=== PATIENT | male | born 1975 | race Caucasian/White ===

== ENCOUNTER 2016-11-30 13:46 | Emergency (ER) | payer BC, OTHER ==
[2016-11-30] MEDS ORDERED: Lidocaine 1% 50 ML MDV INJECT ONE (14:03)
[2016-11-30] MEDS ORDERED: Acetaminophen/HYDROcodone 325-5 MG Tab PO ONE (14:03)
[2016-11-30] MEDS ORDERED: Bupivacaine 0.5% 50 ML MDV INJECT ONE (14:13)
[2016-11-30] MEDS ORDERED: Bupivacaine 0.5% 10 ML SDV ONE (14:18)
[2016-11-30] MEDS ORDERED: Diphtheria,Pertussis(Acell),Tetanus Vaccine 0.5 ML SDV inactive IM ONE (14:26)
[2016-11-30] MEDS ORDERED: ceFAZolin 1 GM in Premix Bag 1 BAG IV ONE (14:33)
[2016-11-30] MEDS ORDERED: Diphtheria/Tetanus Toxoids,Adult (Td) 0.5 ML Syringe IM ONE (15:08)
--- NOTE | 2016-11-30 15:08 | CR ---
Left hand: Four views of the left hand were obtained. Fractures are identified within the proximal shaft of the proximal phalanx of fourth and fifth digit. Mild angulation seen of the fourth finger. Slightly comminuted fracture also noted within the mid shaft of the middle phalanx of the second finger. Tuft fractures are seen within the distal second and third fingers as well as minimal tuft fracture within the fourth finger. Diffuse soft tissue swelling is seen. No additional abnormality is noted. Impression: 1. Multiple fractures as noted above. Soft tissue swelling. Diagnostic code #3
[2016-11-30] MEDS ORDERED: Sulfamethoxazole/Trimethoprim 800-160 MG Tab PO ONE (15:10)
--- NOTE | 2016-11-30 15:31 | EDM.PDOC ---
ED HPI Skin/Rash - General Chief Complaint: Laceration Stated Complaint: LEFT HAND INJURY Time Seen by Provider: 11/30/16 14:04 Source: Reports: Patient History Limitations: Reports: No limitations - History of Present Illness INITIAL COMMENTS - FREE TEXT/NARRATIVE: Patient is a 40 year old male who presents to the E.D. complaining of pain, abrasions, laceration to left hand/fingers. Patient states he is left handed and was working on a Libratoer motor belt. States while his left hand was working on the motor another co worker accidentally turned it on causing his hand to get pulled through the eduardo. Has pain to the 2nd-5 finger. Laceration to the middle phalanx index finger and angulation to the proximal ring finger. No sensory deficits noted. Tetanus status is not up to date. Patient denies any additional complaints. Timing: Reports: rapid onset Location, Skin: Reports: upper extremity, left Quality: Reports: Ache, Throbbing Severity: moderate Known Identified Source: yes Place of Occurrence: work Similar Symptoms Previously: no Recent Medical Care: no Treatments APPLICATIONS INTERN: Reports: Other (see below) (none stated) - Related Data Allergies Allergy/AdvReac Type Severity Reaction Status Date / Time No Known Allergies Allergy Verified 11/30/16 13:55 Home Meds: Ambulatory Orders Medication Instructions Recorded Confirmed Acetaminophen/HYDROcodone [[place] 1 tab PO Q6H PRN #20 tablet 11/30/16 325-5 MG] Sulfamethoxazole/Trimethoprim 1 each PO BID #20 tablet 11/30/16 [Bactrim Ds Tablet] Tadalafil [Cialis] 1 tab PO DAILY 11/30/16 11/30/16 Past Medical History - Past Surgical History HEENT Surgical History: Reports: Other (see below) Other HEENT Surgeries/Procedures: cyst removal Social & Family History - Tobacco Use Smoking Status *Q: Current Every Day Smoker Years of Tobacco use: 20 Packs/Tins Daily: 0.8 - Caffeine Use Caffeine Use: Reports: None - Recreational Drug Use Recreational Drug Use: No ED ROS GENERAL - Review of Systems Review Of Systems: See Below ED EXAM, SKIN/RASH Exam: See Below Exam Limited By: No limitations General Appearance: alert, WD/WN, mild distress Ears: hearing grossly normal Nose: normal inspection Throat/Mouth: Normal voice, No airway compromise Neck: normal inspection Respiratory/Chest: no respiratory distress, no accessory muscle use Cardiovascular: normal peripheral pulses, regular rate, rhythm Peripheral Pulses: 2+: radial (L) Extremities: other (See Below) Neurological: alert, oriented, CN II-XII intact, normal cognition, no motor/ sensory deficits Psychiatric: normal affect, normal mood Skin: Warm, Dry, Normal color Comments: Laceration to the middle phalanx, index finger, measuring 2.5 cm. Partial involvement noted to the middle phalanxe extensor tendon. Able to extend PIP/ DIP against resistance. X-ray of the left hand revealed: Index finger comminuted fracture to the middle phalanx minimally displaced, and also tuft fracture. Middle finger: Tuft fracture Ring finger: Angulated transverse fracture to the proximal phalanx Pinky finger: Comminuted fracture to the proximal phalanx minimally displaced. ED SKIN PROCEDURES - Laceration/Wound Repair Left Distal Finger Lac/wound length in cm: 2.5 Appearance: subcutaneous Distal NVT: neuro & vascular intact, other (Index finger: Partial tear of extensor tendon at the PIP. Able to extend PIP/DIP against resistance. ) Anesthetic type: digital Local anesthesia - Lidocaine (Xylocaine): other (0.5 marcaine) Local anesthetic volume: 5cc Exploration/Debridement/Repair: wound explored, in a bloodless field, explored to base, no foreign material found Closed with: sutures Suture size: 4-0 # of sutures: 8 Suture type: prolene, interrupted Sterile dressing applied: nurse Tetanus status addressed: Yes Complications: No - Splinting Left Upper Extremity Splint site: hand Pre-procedure NV status: normal Post-procedure NV status: normal Splint material: fiberglass, other Splint design: volar Applied & form fitted by: provider Provider post-splint application NV check: NV status normal, good position Complications: No Course - Vital Signs Last Recorded V/S: Last Vital Signs Temp 97 F 11/30/16 13:50 Pulse 77 11/30/16 13:50 Resp 16 11/30/16 13:50 BP 151/95 H 11/30/16 13:50 Pulse Ox 100 11/30/16 13:50 - Orders/Labs/Meds Orders: Active Orders 24 hr Category Date Time Status Vaccines to be Administered [RC] PER UNIT ROUTINE Care 11/30/16 14:26 Active Meds: Medications Discontinued Medications Generic Name Dose Route Start Last Admin Trade Name Valente PRN Reason Stop Dose Admin Hydrocodone Bitart/Acetaminophen 1 tab 11/30/16 14:03 11/30/16 14:24 [place] 325-5 Mg PO 11/30/16 14:04 1 tab ONETIME ONE Administration Bupivacaine HCl 50 ml 11/30/16 14:13 11/30/16 14:23 Marcaine 0.5% INJECT 11/30/16 14:14 Not Given ONETIME ONE Bupivacaine HCl Confirm 11/30/16 14:18 11/30/16 14:25 Sensorcaine-Mpf 0.5% Administered 11/30/16 14:19 10 ml Dose Administration 10 ml .ROUTE .STK-MED ONE Diphtheria/Tetanus/Acell Pertussis 0.5 ml 11/30/16 14:26 11/30/16 15:09 Boostrix IM 11/30/16 14:27 Not Given .ONCE ONE Cefazolin Sodium/Dextrose 1 gm 50 mls @ 100 mls/hr 11/30/16 14:33 11/30/16 15 :42 / Premix IV 11/30/16 15:02 Not Given ONETIME ONE Lidocaine HCl 50 ml 11/30/16 14:03 Xylocaine 1% INJECT 11/30/16 14:04 ONETIME ONE Tetanus/Diphtheria Toxoids 0.5 ml 11/30/16 15:08 11/30/16 15:08 Tenivac IM 11/30/16 15:09 0.5 ml .ONCE ONE Administration Trimethoprim/Sulfamethoxazole 2 tab 11/30/16 15:10 Septra Ds PO 11/30/16 15:11 ONETIME ONE - Re-Assessments/Exams Free Text/Narrative Re-Assessment/Exam: Ordered lidocaine 1%, boostrix, and left hand x-ray. Changes lidocaine 1% to Marcaine. [place] 5-325mg Ordered. Digitally blocked index finger and ring finger with relief of pain distally. Laceration measuring 2.5 cm to the dorsal aspect middle phalanx index finger. Open fracture. Ordered IV and ancef 1 gram. Patient states he cannot take doxyclyne since he has adverse reaction. Becomes confused. X-ray of the left hand revealed: Index finger comminuted fracture to the middle phalanx minimally displaced, and also tuft fracture. Middle finger: Tuft fracture Ring finger: Angulated transverse fracture to the proximal phalanx Pinky finger: Comminuted fracture to the proximal phalanx minimally displaced. Laceration and abrasions cleaned by nursing staff. When discussing antibiotic treatment. Patients significant other states he cannot have keflex but can take doxycycline. [address] Rodriguez credit collections analyst orthopedic surgeon. Will see the patient this coming Monday in the clinic with plans of having surgery the following Monday. Laceration closed with no complications. Appears extensor tendon of the middle phalanx was partially involved. Able to extend finger at the PIP/DIP against resistance. Changed antibiotic to bactrim DS. Volar splint applied with no issues. Index finger laceration exposed to allow inspection for infection and dressing change. Discharge patient home with instructions as documented with prescription for norco and bactrim ds. Departure - Departure Time of Disposition: 15:39 Disposition: Home, Self-Care 01 Condition: fair Clinical Impression: Fracture of multiple fingers Open fracture of finger of left hand Qualifiers: Encounter type: initial encounter Qualified Code(s): S62.609B - Fracture of unspecified phalanx of unspecified finger, initial encounter for open fracture Fracture of finger, middle phalanx, left, open Qualifiers: Encounter type: initial encounter Qualified Code(s): S62.629B - Displaced fracture of medial phalanx of unspecified finger, initial encounter for open fracture Prescriptions: Acetaminophen/HYDROcodone [[place] 325-5 MG] 1 tab PO Q6H PRN #20 tablet PRN Reason: Pain (Severe 7-10) Sulfamethoxazole/Trimethoprim [Bactrim Ds Tablet] 1 each PO BID #20 tablet Instructions: Pain Medicine Instructions, [id number], Stitches, Ferguson, or Adhesive Wound Closure, [id number], Laceration Care, Adult, [id number] Referrals: PCP,None [Primary Care Provider] - Tyshawn Rodriguez MD [Physician] - Forms: ED Department Discharge, Return to Work/School Form Additional Instructions: Take the Bactrim as prescribed. Utilize ice 4-6 times daily, 20 minutes in duration, do not place ice directly on the skin. For mild to moderate pain take Tylenol 650 mg every 6 hours and ibuprofen 600 mg every 6 hours in alternating fashion. Elevate extremity when able to reduce swelling and pain. For severe pain take [place] one tab every [address] Do not drive today nor while taking the [place]. Laceration to left index finger, cleanse twice daily, PAT dry, reapply bacitracin and dressing. Keep area clean and dry. Followup with Dr. Rodriguez Orthopedic Surgeon at [facility] this coming Monday for evaluation for surgery. Call today for appointment. Return back to the ED if you experience any new or worsening symptoms. Sutures need to be removed in 10 days. Followup with provider at [facility] to do so. - My Orders Last 24 Hours: My Active Orders 11/30/16 14:26 Vaccines to be Administered [RC] PER UNIT ROUTINE - Assessment/Plan Last 24 Hours: My Active Orders 11/30/16 14:26 Vaccines to be Administered [RC] PER UNIT ROUTINE
[2016-11-30 16:54] VITALS: BP 144/79
== END 2016-11-30 15:55 | disposition home or self-care (01) ==
LOC: JD.ED 13:46
DX: S62.617B Displaced fracture of proximal phalanx of left little finger, initial encounter for open fracture (principal); S62.615B Displaced fracture of proximal phalanx of left ring finger, initial encounter for open fracture; S62.621B Displaced fracture of middle phalanx of left index finger, initial encounter for open fracture; S62.633B Displaced fracture of distal phalanx of left middle finger, initial encounter for open fracture; W30.89XA Contact with other specified agricultural machinery, initial encounter; Z88.6 Allergy status to analgesic agent; Z88.2 Allergy status to sulfonamides; F17.200 Nicotine dependence, unspecified, uncomplicated; Z23 Encounter for immunization
CPT/HCPCS: 12001; 29125; 64450; 73130; 90471; 90714; 99284; A9270; 99283-25

== ENCOUNTER 2016-12-05 07:09 | Day surgery (SDC) | payer OTHER ==
[~2016-12-05 07:09] MED LIST: Lidocaine 1%/Sod Bicarbonate in NS 8.4% 1 ML Syringe PRN; Sodium Chloride 0.9% 10 ML Syringe FLUSH PRN
[2016-12-05] MEDS ORDERED: fentaNYL 100 MCG/2 ML SDV ONE ×2 (07:21→09:03)
[2016-12-05] MEDS ORDERED: Propofol 200 MG/20 ML SDV ONE ×2 (07:21→07:23)
[2016-12-05] MEDS ORDERED: Midazolam 1 MG/ML 2 ML SDV ONE (07:22)
[2016-12-05] MEDS ORDERED: Ondansetron 4 MG/2 ML SDV ONE (07:23)
[2016-12-05] MEDS ORDERED: Dexamethasone 4 MG/ML 5 ML MDV ONE (07:23)
[2016-12-05] MEDS ORDERED: Lidocaine 1% 4 ML ONE (07:23)
[2016-12-05] MEDS ORDERED: Lidocaine 0.5% 50 ML SDV ONE (07:25)
[2016-12-05] MEDS ORDERED: Sodium Bicarbonate 8.4% 50 MEQ/50 ML SDV ONE (07:25)
[2016-12-05] MEDS: Lactated Ringers 1,000 ML IV SCH ×2 (07:30→10:34)
[2016-12-05] MEDS ORDERED: Clindamycin Phosphate 900 MG in Sodium Chloride 0.9% 100 ML IV SCH (07:30)
--- NOTE | 2016-12-05 07:42 | PCM.PREANE ---
Preanesthetic Assessment - Anesthesia/Transfusion/Family Hx Anesthesia History: Prior Anesthesia Without Reaction Family History of Anesthesia Reaction: No Transfusion History: No Prior Transfusion(s) Type of Transfusion Reactions: Reports: Unknown Intubation History: Unknown - Review of Systems General: No Symptoms Pulmonary: No Symptoms Cardiovascular: Other (hyperlipidemia ) Gastrointestinal: No symptoms Neurological: No Symptoms Other: Reports: None - Physical Assessment NPO Status Date: 12/04/16 NPO Status Time: 22:00 Pulse: 70 O2 Sat by Pulse Oximetry: 96 Respiratory Rate: 16 Blood Pressure: 128/91 Temperature: 36.6 C Height: 1.83 m Weight: 83.915 kg ASA Class: 2 Mental Status: Alert & Oriented x3 Airway Class: Mallampati = 1 Dentition: Reports: Missing Tooth/Teeth (multiple missing ) Thyro-Mental Finger Breadths: 3 Mouth Opening Finger Breadths: 3 ROM/Head Extension: Full Lungs: Clear to auscultation, Normal respiratory effort Cardiovascular: Regular Rate, Regular Rhythm - Allergies Allergies/Adverse Reactions: Allergies Allergy/AdvReac Type Severity Reaction Status Date / Time Cephalosporins AdvReac Hallucinati Verified 12/04/16 19:12 ons - Blood Blood Available: No Product(s) Available: None - Acknowledgements Anesthesia Type Planned: DEBORAH Pt an Appropriate Candidate for the Planned Anesthesia: Yes Alternatives and Risks of Anesthesia Discussed w Pt/Guardian: Yes Pt/Guardian Understands and Agrees with Anesthesia Plan: Yes PreAnesthesia Questionnaire Cardiovascular History: Reports: High cholesterol Respiratory History: Reports: None Gastrointestinal History: Reports: None Genitourinary History: Reports: None 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: Reports: None Musculoskeletal History: Reports: None Neurological History: Reports: None Psychiatric History: Reports: None Endocrine/Metabolic History: Reports: None Hematologic History: Reports: None Immunologic History: Reports: None Oncologic (Cancer) History: Reports: None Dermatologic History: Reports: None - Past Surgical History Head Surgeries/Procedures: Reports: None HEENT Surgical History: Reports: Oral surgery, Other (see below) Other HEENT Surgeries/Procedures: cyst removal/dental abcess - SUBSTANCE USE Smoking Status *Q: Current Every Day Smoker (20years, 1ppd) Tobacco Use Within Last Twelve Months: Cigarettes Days Per Week of Alcohol Use: 7 Number of Drinks Per Day: 4 Total Drinks Per Week: 28 Date of Last Drink: 12/04/16 Time of Last Drink: 15:00 Recreational Drug Use History: No - HOME MEDS Home Medications: Home Meds Sulfamethoxazole/Trimethoprim [Bactrim Ds Tablet] 1 each PO BID #20 tablet 11/30 [Rx] Tadalafil [Cialis] 1 tab PO DAILY PRN 11/30/16 [History] Pravastatin Sodium [Pravachol] 40 mg PO DAILY 12/04/16 [History] Acetaminophen/HYDROcodone [[place] 325-5 MG] 1 tab PO Q6H PRN #40 tablet 12/05/16 [Rx] - CURRENT (IN HOUSE) MEDS Current Meds: Current Medications Lactated Ringer's (Ringers, Lactated) 1,000 mls @ 125 mls/hr IV ASDIRECTED SHAW Stop: 12/05/16 23:00 Clindamycin Phosphate 900 mg/ (Sodium Chloride) 106 mls @ 100 mls/hr IV ONETIME SHAW Lidocaine/Sodium Bicarbonate (Buffered Lidocaine 1% In Ns 8.4%) 0.25 ml .XX ONETIME PRN PRN Reason: Prior to IV Start Stop: 12/05/16 18:00 Sodium Chloride (Saline Flush) 10 ml FLUSH ASDIRECTED PRN PRN Reason: Keep Vein Open Stop: 12/05/16 18:00 Discontinued Medications Dexamethasone (Dexamethasone) Confirm Administered Dose 20 mg .ROUTE .STK-MED ONE Stop: 12/05/16 07:24 Fentanyl (Sublimaze) Confirm Administered Dose 100 mcg .ROUTE .STK-MED ONE Stop: 12/05/16 07:22 Lidocaine HCl (Xylocaine-Mpf 1%) Confirm Administered Dose 4 mls @ as directed .ROUTE .STK-MED ONE Stop: 12/05/16 07:24 Lidocaine HCl (Xylocaine-Mpf 0.5%) Confirm Administered Dose 50 ml .ROUTE .STK- MED ONE Stop: 12/05/16 07:26 Midazolam HCl (Versed 1 Mg/Ml) Confirm Administered Dose 2 mg .ROUTE .STK-MED ONE Stop: 12/05/16 07:23 Ondansetron HCl (Zofran) Confirm Administered Dose 4 mg .ROUTE .STK-MED ONE Stop: 12/05/16 07:24 Propofol (Diprivan 20 Ml) Confirm Administered Dose 400 mg .ROUTE .STK-MED ONE Stop: 12/05/16 07:22 Propofol (Diprivan 20 Ml) Confirm Administered Dose 200 mg .ROUTE .STK-MED ONE Stop: 12/05/16 07:24 Sodium Bicarbonate (Sodium Bicarbonate 8.4%) Confirm Administered Dose 50 meq .ROUTE .STK-MED ONE Stop: 12/05/16 07:26
[2016-12-05] MEDS ORDERED: Bupivacaine 0.25% 10 ML SDV ONE (08:15)
[2016-12-05] MEDS ORDERED: diphenhydrAMINE 50 MG/ML SDV IVPUSH PRN (09:30)
[2016-12-05] MEDS ORDERED: Ondansetron 4 MG/2 ML SDV IVPUSH PRN (09:30)
[2016-12-05] MEDS ORDERED: Meperidine PF 50 MG/ML Syringe IVPUSH PRN (09:30)
--- NOTE | 2016-12-05 10:24 | PCM.POSTAN ---
POST ANESTHESIA ASSESSMENT - MENTAL STATUS Mental Status: somnolent - VITAL SIGNS Pulse Rate: 62 SaO2: 92 Resp Rate: 15 Blood Pressure: 117/88 Temperature: 36.2 C - RESPIRATORY Respiratory Status: respiratory rate WNL, airway patent, O2 saturation stable, supplemental oxygen - CARDIOVASCULAR CV Status: pulse rate WNL, blood pressure stable - GASTROINTESTINAL GI Status: no symptoms - PAIN Pain Score: 0 - POST OP HYDRATION Hydration Status: adequate & stable
[2016-12-05] MEDS ORDERED: fentaNYL 100 MCG/2 ML SDV IVPUSH PRN (10:30)
[2016-12-05] MEDS ORDERED: HYDROmorphone 0.5 MG/0.5 ML Syringe IVPUSH PRN (10:30)
--- NOTE | 2016-12-05 11:01 | PCM.OPNOTE ---
- General Post-Op/Procedure Note Date of Surgery/Procedure: 12/05/16 Operative Procedure(s): open reduction internal fixation of left ring finger proximal phalanx and perctuaneous pinning of left index finger middle phalanx fractures Pre Op Diagnosis: left index middle phalanx fracture. left ring finger proximal phalanx fracture. left small finger proximal phalanx fracture Post-Op Diagnosis: Same Anesthesia Technique: General LMA, Local, Regional block (sameer) Primary Surgeon: Tyshawn Rodriguez Anesthesia Provider: Jesus Alberto Oviedo Splunk Architect: Destiny Trinidad in mLs: 5 Complications: None Condition: Good
[2016-12-05 11:56] VITALS: BP 125/85
[2016-12-05] MEDS ORDERED: Acetaminophen/HYDROcodone 325-5 MG Tab PO ONE (12:15)
--- NOTE | 2016-12-05 13:28 | PCM48HPAN ---
Post Anesthesia Note - EVALUATION WITHIN 48HRS OF ANESTHETIC Vital Signs in Normal Range: Yes Patient Participated in Evaluation: Yes Respiratory Function Stable: Yes Airway Patent: Yes Cardiovascular Function Stable: Yes Hydration Status Stable: Yes Pain Control Satisfactory: Yes Nausea and Vomiting Control Satisfactory: Yes Mental Status Recovered: Yes
--- NOTE | 2016-12-05 13:29 | CR ---
Left fingers: Multiple fluoroscopic spot views utilizing C-arm device was obtained. Study shows placement of plate and screws affixing proximal phalanx fracture within the fourth digit. Two longitudinal pins affix previous fracture within the middle phalanx of the second digit. No fluoroscopy time given at time of dictation. Impression: 1. Operative fixation of fractures as described above. Diagnostic code #2
--- NOTE | 2016-12-05 19:04 | OR ---
DATE OF OPERATION: 12/05/2016 SURGEON: Tyshawn Rodriguez MD OPERATION PERFORMED: Open reduction, internal fixation of left ring finger proximal phalanx and percutaneous pinning of left index finger and middle phalanx fractures. PREOPERATIVE DIAGNOSIS: 1. Left index middle phalanx fracture. 2. Left ring finger proximal phalanx fracture. 3. Left small finger proximal phalanx fracture. POSTOPERATIVE DIAGNOSIS: 1. Left index middle phalanx fracture. 2. Left ring finger proximal phalanx fracture. 3. Left small finger proximal phalanx fracture. ANESTHESIA: General LMA with local and regional [place] block. ANESTHESIA PROVIDER: Jesus Alberto O[place]iedo. BRIM POUNCING MACHINE OPERATOR: Destiny Trinidad PA-C. ESTIMATED BLOOD LOSS: Less than 5 mL. COMPLICATIONS: None. CONDITION: Stable. DESCRIPTION OF PROCEDURE: The patient was identified in the preop holding area. Proper site was marked and identified by the surgeon. The patient was taken back to the operating theater where after adequate anesthesia, the patient's left upper extremity had a [place] block, and then was sterilely prepped and draped in the usual sterile fashion. OR time-out was performed. The patient received 2 g IV Ancef before the K[place] block. At this time, the finger was manipulated. The patient subsequently was moving and feeling pain and underwent general LMA intubation. At this time, dorsal lateral incision was made over the ring finger over the proximal phalanx on the radial side. Blunt dissection was taken down to the periosteum. The fracture site was identified. It was curetted and washed out of fracture hematoma. At this time, reduction was showed to be anatomic. A 2.3 mm [place] locking compression plate was then utilized and was placed and was noted to be off a little bit volarly, but it was nowhere near the tendon and found to be in otherwise adequate position. At this time, a 2.3 nonlocking screw was placed proximally, then a 2.3 mm nonlocking screw was placed in the shaft and compression technique on the distal aspect. It was found to have adequate fixation with anatomic reduction on AP and lateral views. At this time, one more nonlocking screw was placed both proximally and distally. The fracture was found to be compressed well with anatomic reduction. At this time, attention was turned to the small finger and small finger fracture showed complete stability with no instability in all range of motion. Index finger did show an apex volar angulation. At this time, it was decided it would be pinned. At this time, two 0.045 K-wires were used one on either side in a retrograde fashion across the fracture site and it was found to be anatomically reduced. At this time, adequate saline was irrigated through the wound. 4-0 Vicryl was used subcutaneously and 4-0 nylon was used for the skin. The patient was placed in a sterile soft dressing and a splint and tolerated the procedure well and sent to PACU in stable condition. MMODAL /[id number]
== END 2016-12-05 11:45 | disposition home or self-care (01) ==
LOC: JD.SDS 07:09
PROVIDERS: ATTEND Orthopaedic Surgery
PROC: 0PSV04Z Reposition Left Finger Phalanx with Internal Fixation Device, Open Approach (ICD-10-PCS; principal; 2016-12-05)
DX: S62.615A Displaced fracture of proximal phalanx of left ring finger, initial encounter for closed fracture (principal); S62.621A Displaced fracture of middle phalanx of left index finger, initial encounter for closed fracture; S62.617A Displaced fracture of proximal phalanx of left little finger, initial encounter for closed fracture; E78.5 Hyperlipidemia, unspecified; F17.210 Nicotine dependence, cigarettes, uncomplicated; Z79.899 Other long term (current) drug therapy; Z98.890 Other specified postprocedural states
CPT/HCPCS: 26720; 26735; 76000; A9270; J1100; J1170; J2250; J2405; J3010; J7030; J7120; 01830; C1713; J2704

== ENCOUNTER 2022-07-20 13:48 | Emergency (ER) | payer BC ==
[2022-07-20 15:08] VITALS: BP 122/84; PULSE 66
== END 2022-07-20 17:15 | disposition home or self-care (01) ==
LOC: JD.ED 13:48
DX: S40.011A Contusion of right shoulder, initial encounter (principal); E78.00 Pure hypercholesterolemia, unspecified; Z88.1 Allergy status to other antibiotic agents; Z79.899 Other long term (current) drug therapy; W18.30XA Fall on same level, unspecified, initial encounter; Y93.23 Activity, snow (alpine) (downhill) skiing, snowboarding, sledding, tobogganing and snow tubing
CPT/HCPCS: 73030-RT; 99283

== ENCOUNTER 2024-03-20 00:36 | Inpatient (IN) | payer BC, OTHER ==
[2024-03-20] MEDS ORDERED: Sodium Chloride 0.9% 10 ML Syringe FLUSH PRN (01:13)
[2024-03-20] MEDS: HYDROmorphone 1 MG/ML Syringe ONE (01:30)
[2024-03-20] MEDS: Lidocaine 1% with EPINEPHrine 1:100,000 20 ML MDV ONE (01:34)
[2024-03-20] MEDS: HYDROmorphone 1 MG/ML Syringe IVPUSH ONE (01:40)
[2024-03-20 02:12] LABS: BASOPHILS PERCENT AUTO 0.4 % (0.0-1.0); EOSINOPHILS PERCENT AUTO 0.4 % (0.0-6.0); HEMATOCRIT 46.8 % (42.0-52.0); HEMOGLOBIN 16.6 gm/dl (14.0-18.0); IMMATURE GRAN ABSOLUTE AUTO 0.01 K/mm3 (0.00-0.05); IMMATURE GRAN PERCENT AUTO 0.1 % (0.0-0.4); LYMPHOCYTES ABSOLUTE AUTO 1.7 K/mm3 (1.0-4.8); LYMPHOCYTES PERCENT AUTO 25.3 % (24.0-44.0); MEAN CORPUSCULAR HEMOGLOBIN 32.3 pg (28.0-32.0); MEAN CORPUSCULAR HGB CONC 35.5 g/dl (32.0-36.0); MEAN CORPUSCULAR VOLUME 91.1 fl (83.0-99.0); MEAN PLATELET VOLUME 9.7 fl (9.4-12.4); MONOCYTES ABSOLUTE AUTO 0.5 K/mm3 (0.0-0.8); MONOCYTES PERCENT AUTO 8.1 % (0.0-8.0); NEUTROPHILS ABSOLUTE AUTO 4.4 K/mm3 (1.8-7.7); NEUTROPHILS PERCENT AUTO 65.7 % (41.0-71.0); PLATELET COUNT,PLT 216 K/mm3 (150-400); RED BLOOD CELL COUNT 5.14 M/mm3 (4.52-5.90); WHITE BLOOD CELL COUNT,WBC 6.68 K/mm3 (3.9-11.3)
[2024-03-20 02:38] LABS: A/G RATIO 1.4 (1-2); ALBUMIN 4.3 g/dl (3.4-5.0); ANION GAP 18.8 (5-15); CALCIUM 8.5 mg/dL (8.5-10.1); EST CRCL DRUG DOSING (CG) 99.16 mL/min; POTASSIUM,K 3.8 mEq/L (3.5-5.1); PROTEIN TOTAL,TP 7.4 g/dl (6.4-8.2)
[2024-03-20] MEDS: Ondansetron 4 MG/2 ML SDV ONE (03:59)
[2024-03-20] MEDS: Acetaminophen/oxyCODONE 325-5 MG Tab PO PRN (08:03)
[2024-03-20] MEDS: HYDROmorphone 0.5 MG/0.5 ML Syringe IVPUSH PRN (08:04)
[2024-03-20] MEDS: Heparin Sodium 5,000 Units/ML Vial SUBCUT SCH (09:38)
[2024-03-20] MEDS ORDERED: Ibuprofen 600 MG Tab PO PRN (10:10)
[2024-03-20] MEDS: Ondansetron 4 MG Tab.DIS PO PRN (11:36)
[2024-03-20] MEDS: Ketorolac 30 MG/ML SDV IVPUSH PRN (11:36)
[2024-03-20] MEDS: Ketorolac 30 MG/ML SDV IVPUSH SCH (16:32)
[2024-03-21 05:06] LABS: BASOPHILS PERCENT AUTO 0.6 % (0.0-1.0); EOSINOPHILS ABSOLUTE AUTO 0.1 K/mm3 (0.0-0.4); EOSINOPHILS PERCENT AUTO 2.5 % (0.0-6.0); HEMATOCRIT 44.4 % (42.0-52.0); HEMOGLOBIN 15.7 gm/dl (14.0-18.0); IMMATURE GRAN ABSOLUTE AUTO 0.01 K/mm3 (0.00-0.05); IMMATURE GRAN PERCENT AUTO 0.2 % (0.0-0.4); LYMPHOCYTES PERCENT AUTO 38.3 % (24.0-44.0); MEAN CORPUSCULAR HEMOGLOBIN 32.4 pg (28.0-32.0); MEAN CORPUSCULAR HGB CONC 35.4 g/dl (32.0-36.0); MEAN CORPUSCULAR VOLUME 91.7 fl (83.0-99.0); MEAN PLATELET VOLUME 9.9 fl (9.4-12.4); MONOCYTES ABSOLUTE AUTO 0.4 K/mm3 (0.0-0.8); MONOCYTES PERCENT AUTO 7.5 % (0.0-8.0); NEUTROPHILS ABSOLUTE AUTO 2.7 K/mm3 (1.8-7.7); NEUTROPHILS PERCENT AUTO 50.9 % (41.0-71.0); PLATELET COUNT,PLT 170 K/mm3 (150-400); RED BLOOD CELL COUNT 4.84 M/mm3 (4.52-5.90); WHITE BLOOD CELL COUNT,WBC 5.22 K/mm3 (3.9-11.3)
[2024-03-21] MEDS: Heparin Sodium 5,000 Units/ML Vial SUBCUT SCH (08:32)
[2024-03-21] MEDS: Lidocaine 4% 1 each Patch TOP SCH (18:19)
[2024-03-21] MEDS: Docusate Sodium 100 MG Cap PO PRN (20:20)
[2024-03-22 04:55] LABS: BASOPHILS PERCENT AUTO 0.8 % (0.0-1.0); EOSINOPHILS ABSOLUTE AUTO 0.1 K/mm3 (0.0-0.4); EOSINOPHILS PERCENT AUTO 2.3 % (0.0-6.0); HEMATOCRIT 41.8 % (42.0-52.0); HEMOGLOBIN 14.6 gm/dl (14.0-18.0); IMMATURE GRAN ABSOLUTE AUTO 0.01 K/mm3 (0.00-0.05); IMMATURE GRAN PERCENT AUTO 0.2 % (0.0-0.4); LYMPHOCYTES ABSOLUTE AUTO 1.9 K/mm3 (1.0-4.8); LYMPHOCYTES PERCENT AUTO 39.1 % (24.0-44.0); MEAN CORPUSCULAR HEMOGLOBIN 32.1 pg (28.0-32.0); MEAN CORPUSCULAR HGB CONC 34.9 g/dl (32.0-36.0); MEAN CORPUSCULAR VOLUME 91.9 fl (83.0-99.0); MONOCYTES ABSOLUTE AUTO 0.4 K/mm3 (0.0-0.8); MONOCYTES PERCENT AUTO 8.5 % (0.0-8.0); NEUTROPHILS ABSOLUTE AUTO 2.4 K/mm3 (1.8-7.7); NEUTROPHILS PERCENT AUTO 49.1 % (41.0-71.0); PLATELET COUNT,PLT 156 K/mm3 (150-400); RED BLOOD CELL COUNT 4.55 M/mm3 (4.52-5.90); WHITE BLOOD CELL COUNT,WBC 4.83 K/mm3 (3.9-11.3)
[2024-03-22] MEDS: Remove Patch LIDOCAINE PATCH TRDERM SCH (06:02)
[2024-03-24 12:37] VITALS: BP 153/109; PULSE 72
[2024-03-24] MEDS: Ibuprofen 600 MG Tab PO PRN (16:17)
== END 2024-03-24 17:28 | disposition left against medical advice (07) | DRG 200 ==
LOC: JD.ED 00:36 → JD.ICU 06:22
PROVIDERS: ADMIT Surgery; ATTEND Surgery
PROC: 0W9930Z Drainage of Right Pleural Cavity with Drainage Device, Percutaneous Approach (ICD-10-PCS; principal; 2024-03-20)
DX: S27.0XXA Traumatic pneumothorax, initial encounter (principal); S22.41XA Multiple fractures of ribs, right side, initial encounter for closed fracture; W19.XXXA Unspecified fall, initial encounter; E78.00 Pure hypercholesterolemia, unspecified; I10 Essential (primary) hypertension; F41.9 Anxiety disorder, unspecified; F17.210 Nicotine dependence, cigarettes, uncomplicated; Z88.1 Allergy status to other antibiotic agents; Z79.899 Other long term (current) drug therapy; Z98.890 Other specified postprocedural states
CPT/HCPCS: 32551; 36415; 70450; 70450-26; 71045; 71045-26; 71101-26-RT; 71101-RT; 80053; 85025; 94762; 96372; 96374; 96376; 99284; 99285-25; A9270-GY; J1170; J1644; J1885; J2405; J3490